=== PATIENT | female | born 2000 | race Caucasian/White ===

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

== ENCOUNTER 2018-01-17 04:45 | Emergency (ER) | payer OTHER ==
--- NOTE | 2018-01-17 04:55 | EDPHY ---
H & P Stated Complaint: heart burn jaw, neck and back pain Time Seen by Provider: 01/17/18 04:55 HPI/ROS: HPI CHIEF COMPLAINT: Reflux burning pain in chest. HISTORY OF PRESENT ILLNESS: 17-year-old female, otherwise healthy without any significant medical history however takes control, states that she had vodka last night and then developed burning sensation in her chest. Starts in epigastric region goes up sore throat. Burning in sensation. States that she felt anxious and panicky with this. Developed some bilateral jaw all tightness. This prompted her to come to the emergency room. States this started around 1:00 a.m.. It is now 5:00 a.m.. Main complaint burning discomfort in her chest. All the way to her throat. No vomiting. Past Medical History: Denies medical history Past Surgical History: Denies surgical history Social History: Alcohol use tonight. [employer] student. Family History: Noncontributory ROS REVIEW OF SYSTEMS: 10 Systems were reviewed and negative with the exception of the elements mentioned in the history of present illness. Exam Constitutional nontoxic, triage nursing summary reviewed, vital signs reviewed , awake/alert. Eyes normal conjunctivae and sclera, EOMI, PERRLA. HENT normal inspection, atraumatic, moist mucus membranes, no epistaxis, neck supple/ no meningismus, no raccoon eyes. Respiratory clear to auscultation bilaterally, normal breath sounds, no respiratory distress, no wheezing. Cardiovascular rate normal, regular rhythm, no murmur, no edema, distal pulses normal. Gastrointestinal soft, non-tender, no rebound, no guarding, normal bowel sounds, no distension, no pulsatile mass. Genitourinary no CVA tenderness. Musculoskeletal no midline vertebral tenderness, full range of motion, no calf swelling, no tenderness of extremities, no meningismus, good pulses, neurovascularly intact. Skin pink, warm, & dry, no rash, skin atraumatic. Neurologic awake, alert and oriented x 3, AAOx3, moves all 4 extremities equally, motor intact, sensory intact, CN II-XII intact, normal cerebellar, normal vision, normal speech. Psychiatric normal mood/affect. Heme/Lymph/Immune no lymphadenopathy. Differential diagnosis includes but is not limited to: ACS, atypical chest pain , pneumothorax, pneumonia, pulmonary embolism, aortic dissection, congestive heart failure, tumor, musculoskeletal pain, esophageal pain, GERD, peptic ulcer disease, pancreatitis Medical Decision Making: Symptoms appear to be reflux. Will give GI cocktail IV fluid bolus, check EKG troponin and chest x-ray. Re-evaluate. Re-evaluation: EKG interpretation by me on record in [facility] system. Impression time of EKG 5:12 a.m., sinus rhythm rate of 88, no acute ischemia no ST elevation or ST depression no T-wave abnormalities. 6:24 a.m. Patient re-evaluated feeling much better after GI cocktail. Denies any chest pain or shortness of breath at this time. She would like to go home. Current vital signs heart rate 76, blood pressure 129/88, pulse ox 97% on room air. Trop negative. EKG nonischemic. Chest x-ray reviewed negative for acute cardiopulmonary disease. Patient presents emergency room with reflux type symptoms. She was given a GI cocktail which greatly improved her symptoms. She would like to go home. We discussed return precautions. Additionally return if worsening symptoms additionally recommend antacid medications no spicy fatty greasy foods. She is comfortable this plan. Source: Patient - Personal History LMP (Females 10-55): 8-14 Days Ago Current Tetanus Diphtheria and Acellular Pertussis (TDAP): Yes - Medical/Surgical History Hx Asthma: No Hx Chronic Respiratory Disease: No Hx Diabetes: No Hx Cardiac Disease: No Hx Renal Disease: No Hx Cirrhosis: No Hx Alcoholism: No Hx HIV/AIDS: No Hx Splenectomy or Spleen Trauma: No Other PMH: lita - Social History Smoking Status: Never smoked Constitutional: Initial Vital Signs Temperature (C) 36.9 C 01/17/18 04:49 Heart Rate 93 01/17/18 04:49 Respiratory Rate 20 01/17/18 04:49 Blood Pressure 124/95 H 01/17/18 04:49 O2 Sat (%) 97 01/17/18 04:49 O2 Delivery Mode Room Air Allergies/Adverse Reactions: No Known Allergies Allergy (Unverified 01/17/18 04:49) Home Medications: Medication Instructions Recorded Control 04/28/17 Ranitidine HCl [Zantac] 150 mg PO DAILY #14 tablet 01/17/18 Medical Decision Making - Data Points Laboratory Results: Laboratory Results 01/17/18 05:05 01/17/18 05:05 01/17/18 01/17/18 01/17/18 05:11 05:05 05:05 WBC RBC Hgb Hct MCV MCH MCHC RDW Plt Count MPV Neut % (Auto) Lymph % (Auto) [place] % (Auto) Eos % (Auto) Baso % (Auto) Nucleat RBC Rel Count Absolute Neuts (auto) Absolute Lymphs (auto) Absolute Monos (auto) Absolute Eos (auto) Absolute Basos (auto) Absolute Nucleated RBC Immature Gran % Immature Gran # Sodium 140 mEq/L mEq/L (135-145) Potassium 4.0 mEq/L mEq/L (3.3-5.0) Chloride 111 mEq/L H mEq/L (97-110) Carbon Dioxide 21 mEq/l L mEq/l (22-31) Anion Gap 8 mEq/L mEq/L (6-14) BUN 8 mg/dL mg/dL (7-23) Creatinine 0.7 mg/dL mg/dL (0.6-1.0) Estimated GFR > 60 Glucose 109 mg/dL H mg/dL (70-100) Calcium 9.6 mg/dL mg/dL (8.5-10.4) Total Bilirubin 0.3 mg/dL mg/dL (0.1-1.4) Conjugated Bilirubin 0.2 mg/dL mg/dL (0.0-0.5) Unconjugated Bilirubin 0.1 mg/dL mg/dL (0.0-1.1) AST 25 IU/L IU/L (14-46) ALT 29 IU/L IU/L (9-52) Alkaline Phosphatase 80 IU/L IU/L (38-126) POC Troponin I 0.00 ng/mL ng/mL (0.00-0.08) Total Protein 7.2 g/dL g/dL (6.3-8.2) Albumin 4.4 g/dL g/dL (3.5-5.0) Lipase 114 IU/L IU/L (23-300) Beta HCG, Qual NEGATIVE 01/17/18 05:05 WBC 7.20 10^3/uL 10^3/uL (3.80-9.50) RBC 4.53 10^6/uL 10^6/uL (4.18-5.33) Hgb 13.3 g/dL g/dL (12.6-16.3) Hct 37.8 % L % (38.0-47.0) MCV 83.4 fL fL (81.5-99.8) MCH 29.4 pg pg (27.9-34.1) MCHC 35.2 g/dL g/dL (32.4-36.7) RDW 11.9 % % (11.5-15.2) Plt Count 310 10^3/uL 10^3/uL (150-400) MPV 9.9 fL fL (8.7-11.7) Neut % (Auto) 59.3 % % (39.3-74.2) Lymph % (Auto) 29.3 % % (15.0-45.0) [place] % (Auto) 9.4 % % (4.5-13.0) Eos % (Auto) 1.1 % % (0.6-7.6) Baso % (Auto) 0.6 % % (0.3-1.7) Nucleat RBC Rel Count 0.0 % % (0.0-0.2) Absolute Neuts (auto) 4.27 10^3/uL 10^3/uL (1.70-6.50) Absolute Lymphs (auto) 2.11 10^3/uL 10^3/uL (1.00-3.00) Absolute Monos (auto) 0.68 10^3/uL 10^3/uL (0.30-0.80) Absolute Eos (auto) 0.08 10^3/uL 10^3/uL (0.03-0.40) Absolute Basos (auto) 0.04 10^3/uL 10^3/uL (0.02-0.10) Absolute Nucleated RBC 0.00 10^3/uL 10^3/uL (0-0.01) Immature Gran % 0.3 % % (0.0-1.1) Immature Gran # 0.02 10^3/uL 10^3/uL (0.00-0.10) Sodium Potassium Chloride Carbon Dioxide Anion Gap BUN Creatinine Estimated GFR Glucose Calcium Total Bilirubin Conjugated Bilirubin Unconjugated Bilirubin AST ALT Alkaline Phosphatase POC Troponin I Total Protein Albumin Lipase Beta HCG, Qual Medications Given: Discontinued Medications Al Hydroxide/Mg Hydroxide (Maalox Susp) 30 ml PO ONCE ONE Stop: 01/17/18 04:58 Last Admin: 01/17/18 05:12 Dose: 30 ml Hyoscyamine Sulfate (Levsin, Hyomax-Sl) 0.25 mg PO ONCE ONE Stop: 01/17/18 04:58 Last Admin: 01/17/18 05:12 Dose: 0.25 mg Sodium Chloride (Ns) 1,000 mls @ 0 mls/hr IV EDNOW ONE; Wide Open PRN Reason: Protocol Stop: 01/17/18 04:58 Last Admin: 01/17/18 05:11 Dose: 1,000 mls Lidocaine (Lidocaine 2% Viscous) 15 ml PO ONCE ONE Stop: 01/17/18 04:58 Last Admin: 01/17/18 05:12 Dose: 15 ml Point of Care Test Results: Chemistry 01/17/18 05:11 POC Troponin I 0.00 ng/mL ng/mL (0.00-0.08) Departure - Departure Disposition: Home, Routine, Self-Care Clinical Impression: GERD (gastroesophageal reflux disease) Qualifiers: Esophagitis presence: with esophagitis Qualified Code(s): K21.0 - Gastro- esophageal reflux disease with esophagitis Condition: Good Instructions: Gastroesophageal Reflux Disease (ED) Additional Instructions: 1. Thomas diet over the next 24-48 hours. 2. No spicy fatty greasy foods. 3. Zantac 4. Return if worse. Referrals: BHARAT AMIN [Other] - As per Instructions Prescriptions: Ranitidine HCl [Zantac] 150 mg PO DAILY #14 tablet
[2018-01-17] MEDS ORDERED: NS 1,000 ML IV ONE (04:57)
[2018-01-17] MEDS ORDERED: MAG HYDROX/AL HYDROX/SIMETH 30 ML UDCUP PO ONE (04:57)
[2018-01-17] MEDS ORDERED: HYOSCYAMINE SULFATE 0.125 MG TAB PO ONE (04:57)
[2018-01-17] MEDS ORDERED: LIDOCAINE 2% VISCOUS 15 ML UDCUP PO ONE (04:57)
[2018-01-17 05:18] LABS: PLATELET COUNT 310 10^3/uL (150-400)
--- NOTE | 2018-01-17 06:17 | CPEKG ---
Test Reason : OPEN Blood Pressure : / mmHG Vent. Rate : 088 BPM Atrial Rate : 089 BPM P-R Int : 106 ms QRS Dur : 093 ms QT Int : 353 ms P-R-T Axes : 036 072 003 degrees QTc Int : 427 ms Sinus rhythm Short W[place] interval Confirmed by Miki Faria ([id number]) on 01/17/2018 6:16:13 AM Also confirmed by Miki Faria ([id number]) on 01/17/2018 6:17:24 AM Referred By: Confirmed By:Miki Faria
[2018-01-17 06:31] VITALS: BP 122/84
== END 2018-01-17 06:51 | disposition home or self-care (01) ==
DX: K21.0 Gastro-esophageal reflux disease with esophagitis (principal); R68.84 Jaw pain; E86.9 Volume depletion, unspecified
CPT/HCPCS: 84484-PO